=== PATIENT | male | born 1945 | race Caucasian/White ===

== ENCOUNTER 2022-07-25 12:51 | Inpatient (IN) | payer OTHER, MEDICAID ==
[~2022-07-25] VITALS: Ht 185.4 cm; Wt 82.1 kg
[~2022-07-25 12:51] MED LIST: ALBU90AE INH; FAMO-135 PO; P20 PO
[2022-07-25] MEDS ORDERED: MORPHINE SULFATE 2 MG/ML CPJ (NOT FOR IM USE) IV ONE (14:00)
[2022-07-25 14:14] LABS: BASOPHILS % 0.1 % (0.0-2.0); CLARITY URINE CLEAR (CLEAR); COLOR URINE YELLOW (YELLOW); EOSINOPHILS % 0.2 % (0.0-5.0); HEMATOCRIT. 44.2 % (42.0-52.0); HEMOGLOBIN. 15.3 g/dL (14.0-18.0); KETONES URINE NEGATIVE (NEGATIVE); LEUKOCYTE ESTERASE URINE NEGATIVE (NEGATIVE); LYMPHOCYTES % 7.7 % (20.0-50.0); MEAN CORPUSCULAR HEMOGLOBIN 31.1 pg (28.0-32.0); MEAN CORPUSCULAR VOLUME 90.1 fL (80.0-94.0); MEAN PLATELET VOLUME 8.7 fl (7.4-10.4); MONOCYTES % 3.2 % (2.0-8.0); NEUTROPHILS % 88.8 % (40.0-76.0); NITRITE URINE NEGATIVE (NEGATIVE); OCCULT BLOOD URINE NEGATIVE (NEGATIVE); PH URINE 6.5 (4.5-8.0); PLATELET 76 x1000/uL (130-400); PROTEIN URINE NEGATIVE (NEGATIVE); RED BLOOD CELL COUNT 4.91 mill/uL (4.7-6.1); RED CELL DISTRIBUTION WIDTH 14.2 % (11.6-14.6); SPECIFIC GRAVITY URINE 1.007 (1.005-1.030)
[2022-07-25 14:34] LABS: CHLORIDE 102 mEq/L (98-107)
[2022-07-25 14:43] LABS: INR 1.2
[2022-07-25] MEDS ORDERED: CEFOXITIN SODIUM 2 G in DEXT 5% WATER 100 ML IV STA (15:01)
[2022-07-25] MEDS ORDERED: CEFAZOLIN SODIUM 1000MG/VIAL ONE (17:50)
[2022-07-25] MEDS ORDERED: PROPOFOL 200MG/20ML VIAL IV ONE (17:50)
[2022-07-25] MEDS ORDERED: ONDANSETRON HCL 4MG/2ML INJ ONE (17:53)
[2022-07-25] MEDS ORDERED: MIDAZOLAM HCL 2 MG/2 ML VIAL ONE (17:53)
[2022-07-25] MEDS ORDERED: DEXAMETHASONE 4MG/ML 1ML VIAL ONE (17:53)
[2022-07-25] MEDS ORDERED: SUCCINYLCHOLINE CHLORIDE 200MG/10ML IV ONE (17:53)
[2022-07-25] MEDS ORDERED: FENTANYL CITRATE/PF 50MCG/ML 2ML VIAL ONE (17:54)
[2022-07-25] MEDS ORDERED: HYDROMORPHONE HCL/PF 2MG/ML CPJ IV PRN (18:30)
[2022-07-25] MEDS ORDERED: FENTANYL CITRATE/PF 50MCG/ML 2ML VIAL IV PRN (18:30)
[2022-07-25] MEDS ORDERED: ROCURONIUM BROMIDE 10MG/ML VIAL 5ML IV ONE (18:41)
[2022-07-25] MEDS ORDERED: HYDROCODONE/ACETAMINOPHEN 5/325MG TABLET PO PRN (19:15)
[2022-07-25] MEDS ORDERED: DEXT 5%/0.45% NACL KCL 20MEQ/L 1,000 ML IV SCH (19:15)
[2022-07-25] MEDS ORDERED: MORPHINE SULFATE 4 MG/ML CPJ (NOT FOR IM USE) IV PRN (19:15)
[2022-07-25] MEDS ORDERED: ONDANSETRON HCL 4MG/2ML INJ IV PRN (19:15)
[2022-07-25] MEDS ORDERED: GLYCOPYRROLATE 0.2 MG/ML 2ML VIAL ONE (19:16)
[2022-07-25] MEDS ORDERED: NALOXONE HCL 0.4MG/ML VIAL IV PRN (19:30)
[2022-07-25 20:56] VITALS: BP 96/65
[2022-07-25] MEDS: HYDROCODONE/ACETAMINOPHEN 5/325MG TABLET PO PRN (23:14)
[2022-07-25] MEDS: SODIUM CHLORIDE 0.9% INJ 3ML FLUSH IVF SCH (23:17)
[2022-07-26] VITALS: BP 107/70
[2022-07-26] MEDS: HYDROCODONE/ACETAMINOPHEN 5/325MG TABLET PO PRN (03:55)
[2022-07-26 04:00] VITALS: BP 102/66
[2022-07-26] MEDS ORDERED: TEMAZEPAM 15MG CAPSULE PO PRN (06:30)
[2022-07-26] MEDS ORDERED: DEXTROSE 50% WATER 50ML SYRINGE IV PRN (06:30)
[2022-07-26] MEDS: BLOOD SUGAR DIAGNOSTIC STRIP TEST SCH ×4 (06:47→20:29)
[2022-07-26] MEDS: SODIUM CHLORIDE 0.9% INJ 3ML FLUSH IVF SCH ×3 (06:47→22:35)
[2022-07-26] MEDS: DEXT 5%/0.45% NACL KCL 20MEQ/L 1,000 ML IV SCH ×2 (07:00→17:12)
[2022-07-26] MEDS: INSULIN LISPRO 100 UNITS/ML SUBCUT SCH ×4 (07:50→21:13)
[2022-07-26 08:00] VITALS: BP 103/67
[2022-07-26 12:00] VITALS: BP 117/62
[2022-07-26 16:00] VITALS: BP 115/76
[2022-07-26] MEDS: FAMOTIDINE 20MG/2ML VIAL IV SCH (16:31)
[2022-07-26 19:34] LABS: BASOPHILS % 0.1 % (0.0-2.0); EOSINOPHILS % 0.1 % (0.0-5.0); HEMATOCRIT. 29.6 % (42.0-52.0); HEMOGLOBIN. 10.1 g/dL (14.0-18.0); LYMPHOCYTES % 7.2 % (20.0-50.0); MEAN CORPUSCULAR HEMOGLOBIN 30.5 pg (28.0-32.0); MEAN CORPUSCULAR VOLUME 89.4 fL (80.0-94.0); MEAN PLATELET VOLUME 8.6 fl (7.4-10.4); MONOCYTES % 6.7 % (2.0-8.0); NEUTROPHILS % 85.9 % (40.0-76.0); PLATELET 102 x1000/uL (130-400); RED BLOOD CELL COUNT 3.32 mill/uL (4.7-6.1); RED CELL DISTRIBUTION WIDTH 14.3 % (11.6-14.6)
[2022-07-26 19:53] LABS: CHLORIDE 101 mEq/L (98-107)
[2022-07-26 20:00] VITALS: BP 112/72
[2022-07-27] VITALS: BP 104/67
[2022-07-27] MEDS: MORPHINE SULFATE 2 MG/ML CPJ (NOT FOR IM USE) IV PRN ×3 (00:12→08:52)
[2022-07-27] MEDS: DEXT 5%/0.45% NACL KCL 20MEQ/L 1,000 ML IV SCH (03:15)
[2022-07-27 03:30] VITALS: BP 107/77
[2022-07-27] MEDS: SODIUM CHLORIDE 0.9% INJ 3ML FLUSH IVF SCH (05:54)
[2022-07-27] MEDS: BLOOD SUGAR DIAGNOSTIC STRIP TEST SCH (07:20)
[2022-07-27 08:00] VITALS: BP 121/44
[2022-07-27] MEDS: FAMOTIDINE 20MG/2ML VIAL IV SCH (08:42)
[2022-07-27] MEDS: INSULIN LISPRO 100 UNITS/ML SUBCUT SCH (08:46)
[2022-07-27 10:41] LABS: EOSINOPHILS % 0.3 % (0.0-5.0); HEMATOCRIT. 28.3 % (42.0-52.0); HEMOGLOBIN. 9.7 g/dL (14.0-18.0); LYMPHOCYTES % 7.7 % (20.0-50.0); MEAN CORPUSCULAR HEMOGLOBIN 30.5 pg (28.0-32.0); MEAN CORPUSCULAR VOLUME 88.9 fL (80.0-94.0); MONOCYTES % 6.9 % (2.0-8.0); NEUTROPHILS % 85.1 % (40.0-76.0); PLATELET 85 x1000/uL (130-400); RED BLOOD CELL COUNT 3.18 mill/uL (4.7-6.1); RED CELL DISTRIBUTION WIDTH 13.8 % (11.6-14.6)
[2022-07-27 11:41] VITALS: BP 121/77
[2022-07-27 12:00] VITALS: BP 124/77
== END 2022-07-27 12:50 | disposition home or self-care (01) | DRG 342 ==
LOC: ER 13:05 → 6EST 16:01
PROVIDERS: ADMIT Internal Medicine; ATTEND Internal Medicine
PROC: 0DTJ4ZZ Resection of Appendix, Percutaneous Endoscopic Approach (ICD-10-PCS; principal; 2022-07-25)
DX: K35.80 Unspecified acute appendicitis (principal); E87.1 Hypo-osmolality and hyponatremia; E11.9 Type 2 diabetes mellitus without complications; I10 Essential (primary) hypertension; Z20.822 Contact with and (suspected) exposure to COVID-19; E78.00 Pure hypercholesterolemia, unspecified; K46.9 Unspecified abdominal hernia without obstruction or gangrene
CPT/HCPCS: 36415; 74176; 80053; 81003; 82962; 83036; 85025; 87426; 88304; 99285; C1893; J0330; J0690; J0694; J1100; J1815; J2250; J2270; J2405; J2704; J3010; J3490; J7030; J7060

== ENCOUNTER 2024-02-01 12:50 | Inpatient (IN) | payer MEDICARE, MEDICAID ==
[~2024-02-01] VITALS: Ht 175.3 cm; Wt 81.6 kg
[2024-02-01 13:43] LABS: BASOPHILS % 0.5 % (0.0-2.0); EOSINOPHILS % 1.2 % (0.0-5.0); HEMATOCRIT. 50.7 % (42.0-52.0); HEMOGLOBIN. 17.3 g/dL (14.0-18.0); LYMPHOCYTES % 22.6 % (20.0-50.0); MEAN CORPUSCULAR HEMOGLOBIN 29.9 pg (28.0-32.0); MEAN CORPUSCULAR HGB CONC 34.2 g/dL (31.0-37.0); MEAN CORPUSCULAR VOLUME 87.3 fL (80.0-94.0); MEAN PLATELET VOLUME 7.9 fl (7.4-10.4); MONOCYTES % 7.8 % (2.0-8.0); NEUTROPHILS % 67.9 % (40.0-76.0); PLATELET 136 x1000/uL (130-400); RED BLOOD CELL COUNT 5.81 mill/uL (4.7-6.1); RED CELL DISTRIBUTION WIDTH 14.6 % (11.6-14.6)
[2024-02-01 13:45] LABS: CHLORIDE 106 mEq/L (98-107); POTASSIUM 3.8 mEq/L (3.5-5.1); SODIUM 140 mEq/L (136-145)
[2024-02-01 13:46] LABS: CALCIUM 10.3 mg/dL (8.7-10.4); CARBON DIOXIDE 23 mEq/L (21-32)
[2024-02-01 13:51] LABS: GLUCOSE 181 mg/dL (70-105); UREA NITROGEN BLOOD 14 mg/dL (9-23)
[2024-02-01 13:54] LABS: PROTHROMBIN TIME 11.4 sec (9.6-11.0)
[2024-02-01] MEDS ORDERED: MORPHINE SULFATE 10 MG/ML INJ (NOT FOR IM USE) IV ONE (14:15)
[2024-02-01] MEDS: SODIUM CHLORIDE 0.9% 1,000 ML IV ONE (14:49)
[2024-02-01] MEDS: ONDANSETRON HCL 4MG/2ML INJ IV ONE (14:49)
[2024-02-01] MEDS: MORPHINE SULFATE 10 MG/ML INJ (NOT FOR IM USE) IV NR (14:50)
[2024-02-01 16:03] LABS: LACTIC ACID 2.8 mmol/L (0.4-2.0)
[2024-02-01 21:00] VITALS: BP 124/77; PULSE 77; RESP 20; TEMP 36.418
[2024-02-01 21:48] VITALS: BP 124/77; PULSE 77; RESP 20; TEMP 36.3918; O2SAT 99
[2024-02-01] MEDS ORDERED: DEXTROSE 50% WATER 50ML SYRINGE IV PRN (22:30)
[2024-02-01] MEDS ORDERED: ONDANSETRON HCL 4MG/2ML INJ IV PRN (22:30)
[2024-02-01] MEDS ORDERED: HYDRALAZINE 10 MG in SODIUM CHLORIDE 0.9% 49.5 ML IV PRN (22:45)
[2024-02-01] MEDS: HYDRALAZINE 10 MG in SODIUM CHLORIDE 0.9% 49.5 ML IV SCH (23:19)
[2024-02-01] MEDS: PANTOPRAZOLE SODIUM 40 MG/VIAL IV SCH (23:20)
[2024-02-01] MEDS: MORPHINE SULFATE 2 MG/ML INJ (NOT FOR IM USE) IV PRN (23:31)
[2024-02-02] VITALS (7 sets, daily range): BP systolic 102–126; BP diastolic 51–87; PULSE 70–98; RESP 18–22; TEMP 36.22512–36.78072; O2SAT 95–99
[2024-02-02] MEDS ORDERED: HYDRALAZINE 20MG/ML VIAL IV SCH
[2024-02-02] MEDS: BLOOD SUGAR DIAGNOSTIC STRIP TEST SCH (06:21)
[2024-02-02 07:07] LABS: HEPATITIS B SURFACE ANTIGEN NEGATIVE (Negative)
[2024-02-02] MEDS: INSULIN LISPRO 100 UNITS/ML SUBCUT SCH (07:16)
[2024-02-02 07:28] LABS: HEPATITIS C AB NON REACTIVE (Neg) (Negative)
[2024-02-02] MEDS: ENOXAPARIN 40MG/0.4ML SYR SUBCUT SCH (13:51)
[2024-02-02] MEDS ORDERED: NALOXONE HCL 0.4MG/ML VIAL IV PRN (20:45)
[2024-02-02] MEDS: PNEUMOCOCCAL 20-VAL CONJ-DIP CRM 0.5ML IM ONE (22:11)
[2024-02-02] MEDS: LOPERAMIDE HCL 2MG CAPSULE PO NR (22:47)
[2024-02-03 04:00] VITALS: BP 110/50; PULSE 74; RESP 20; TEMP 36.33624; O2SAT 96
[2024-02-03 08:00] VITALS: BP 113/70; PULSE 81; RESP 20; TEMP 36.78072; O2SAT 100
[2024-02-03 12:00] VITALS: BP 95/72; PULSE 80; RESP 20; TEMP 36.6696; TEMP 36.66960; O2SAT 98
== END 2024-02-03 15:15 | disposition home or self-care (01) | DRG 395 ==
LOC: ER 12:50 → EDBEDREQ 13:06 → EDBEDREQTM 15:45 → EDBEDREQ 15:45 → 6WST 20:29
PROVIDERS: ADMIT Internal Medicine; ATTEND Internal Medicine
DX: K40.30 Unilateral inguinal hernia, with obstruction, without gangrene, not specified as recurrent (principal); K57.30 Diverticulosis of large intestine without perforation or abscess without bleeding; E11.9 Type 2 diabetes mellitus without complications; E78.5 Hyperlipidemia, unspecified; I10 Essential (primary) hypertension; K82.8 Other specified diseases of gallbladder; Z90.49 Acquired absence of other specified parts of digestive tract; Z79.899 Other long term (current) drug therapy
CPT/HCPCS: 36415; 74176; 76700; 80048; 82962; 83036; 83605; 85025; 86705; 87340; 90732; 99285; J0360; J1650; J1815; J2270; J2405; J2470; J7030